=== PATIENT | male | born 1995 | race Hispanic/Latino ===

== ENCOUNTER 2021-03-23 18:20 | Emergency (ER) | payer SELFPAY ==
--- NOTE | 2021-03-23 19:05 | EDPHYS ---
Physician Documentation [facility] Name: Stevie Cantu Age: 26 yrs Sex: Male : 1995 Arrival Date: 03/23/2021 Time: 18:22 Bed 23 Private MD: ED Physician Mulugeta Arnold HPI: 03/23 19:00 This 26 yrs old Male presents to ER via Ambulatory with complaints of Eye joanna Swelling, Rash. 19:00 caused by poison gm. joanna Historical: - Allergies: 18:31 No Known Allergies; ll1 - PMHx: 18:31 None; ll1 - PSHx: 18:31 None; ll1 - Immunization history:: Flu vaccine is not up to date. - Social history:: Smoking status: Patient denies any tobacco usage or history of. ROS: 19:01 Constitutional: Negative for fever, chills, and weight loss, ENT: Negative for injury, joanna pain, and discharge, Neck: Negative for injury, pain, and swelling, Cardiovascular: Negative for chest pain, palpitations, and edema, Respiratory: Negative for shortness of breath, cough, wheezing, and pleuritic chest pain, Abdomen/GI: Negative for abdominal pain, nausea, vomiting, diarrhea, and constipation, Back: Negative for injury and pain, : Negative for injury, bleeding, discharge, and swelling, MS/Extremity: Negative for injury and deformity, Neuro: Negative for headache, weakness, numbness, tingling, and seizure, Psych: Negative for depression, anxiety, suicide ideation, homicidal ideation, and hallucinations, Allergy/Immunology: Negative for hives, rash, and allergies, Endocrine: Negative for neck swelling, polydipsia, polyuria, polyphagia, and marked weight changes, Hematologic/Lymphatic: Negative for swollen nodes, abnormal bleeding, and unusual bruising. 19:01 Eyes: Positive for itching, of the left upper eyelid, left outer canthus and left eye. 19:01 Skin: Positive for rash, of the forehead, left ear, left cheek, left eye and left restorationism. Exam: 19:01 Constitutional: This is a well developed, well nourished patient who is awake, alert, joanna and in no acute distress. ENT: Nares patent. No nasal discharge, no septal abnormalities noted. Tympanic membranes are normal and external auditory canals are clear. Oropharynx with no redness, swelling, or masses, exudates, or evidence of obstruction, uvula midline. Mucous membranes moist. Neck: Trachea midline, no thyromegaly or masses palpated, and no cervical lymphadenopathy. Supple, full range of motion without nuchal rigidity, or vertebral point tenderness. No Meningismus. Chest/axilla: Normal chest wall appearance and motion. Nontender with no deformity. No lesions are appreciated. Cardiovascular: Regular rate and rhythm with a normal S1 and S2. No gallops, murmurs, or rubs. Normal PMI, no JVD. No pulse deficits. Respiratory: Lungs have equal breath sounds bilaterally, clear to auscultation and percussion. No rales, rhonchi or wheezes noted. No increased work of breathing, no retractions or nasal flaring. Abdomen/GI: Soft, non-tender, with normal bowel sounds. No distension or tympany. No guarding or rebound. No evidence of tenderness throughout. Back: No spinal tenderness. No costovertebral tenderness. Full range of motion. Skin: Warm, dry with normal turgor. Normal color with no rashes, no lesions, and no evidence of cellulitis. MS/ Extremity: Pulses equal, no cyanosis. Neurovascular intact. Full, normal range of motion. Neuro: Awake and alert, GCS 15, oriented to person, place, time, and situation. Cranial nerves II-XII grossly intact. Motor strength 5/5 in all extremities. Sensory grossly intact. Cerebellar exam normal. Normal gait. Psych: Awake, alert, with orientation to person, place and time. Behavior, mood, and affect are within normal limits. 19:01 Head/face: Noted is erythema, that is mild, rash, swelling, that is mild, of the forehead, left ear, left cheek, left eye and left restorationism. 19:01 Eyes: Periorbital structures: appear normal, no acute changes, Pupils: no acute changes, equal, round, and reactive to light and accomodation, Extraocular movements: intact throughout, Conjunctiva: normal, no acute changes, Corneas: are normal, no acute changes. Vital Signs: 18:31 BP 153 / 95; Pulse 110; Resp 17; Temp 98.0; Pulse Ox 98% ; Weight 92.99 kg; Height 5 ll1 ft. 10 in. (177.80 cm); Pain 0/10; 18:31 Body Mass Index 29.41 (92.99 kg, 177.80 cm) ll1 MDM: 18:34 Patient medically screened. [facility] 19:03 Differential diagnosis: angioedema, urticaria. Data reviewed: vital signs, nurses joanna notes. Data interpreted: youth nutritional monitor: not applicable for this patient encounter. rate is 110 beats/min, rhythm is regular, Pulse oximetry: on room air is 98 %. Counseling: I had a detailed discussion with the patient and/or guardian regarding: the historical points, exam findings, and any diagnostic results supporting the discharge/admit diagnosis, the need for outpatient follow up, for definitive care, a family practitioner. Administered Medications: 19:26 Drug: predniSONE 60 mg Route: PO; zb 19:27 Follow up: Response: Medication administered at discharge. zb 19:26 Drug: Pepcid (famotidine) 40 mg Route: PO; zb 19:27 Follow up: Response: Medication administered at discharge. zb 19:26 Drug: Benadryl (diphenhydrAMINE) 50 mg Route: PO; zb 19:27 Follow up: Response: Medication administered at discharge. zb 19:26 Drug: Bactroban (mupirocin) Ointment 2 % 1 application Route: Topical; Site: affected zb area; 19:26 Follow up: Response: Medication administered at discharge. zb 19:26 Drug: Bactrim (trimethoprim-sulfamethoxazole) (160 mg-800 mg (DS) 1 tablet Route: PO; zb 19:26 Follow up: Response: Medication administered at discharge. zb Disposition: 03/23/21 19:05 Discharged to Home. Impression: Allergic contact dermatitis - poison gm, Impetigo. - Condition is Stable. - Discharge Instructions: Contact Dermatitis, Contact Dermatitis, [id number], Impetigo, Adult. - Prescriptions for Hydroxyzine HCl 50 mg Oral Tablet - take 1 tablet by ORAL route every 8 hours As needed; 20 tablet. Pepcid 20 mg Oral Tablet - take 1 tablet by ORAL route every 12 hours for 10 days; 20 tablet. Bactrim DS 800- 160 mg Oral Tablet - take 1 tablet by ORAL route every 12 hours for 10 days; 20 tablet. Prednisone 20 mg Oral Tablet - take 2 tablet by ORAL route once daily for 5 days; 10 tablet. - Medication Reconciliation Form, Thank You Letter, Antibiotic Education, Prescription Opioid Use form. - Follow up: Private Physician; When: 2 - 3 days; Reason: Recheck today's complaints, Continuance of care, Re-evaluation by your physician. - Problem is new. - Symptoms have improved. Signatures: Mulugeta Arnold MD MD cha Lewis, Lynsay, RN RN ll1 Sissy Guo RN RN zb Corrections: (The following items were deleted from the chart) 19:27 19:05 03/23/2021 19:05 Discharged to Home. Impression: Allergic contact dermatitis - zb poison gm; Impetigo. Condition is Stable. Forms are Medication Reconciliation Form, Thank You Letter, Antibiotic Education, Prescription Opioid Use. Follow up: Private Physician; When: 2 - 3 days; Reason: Recheck today's complaints, Continuance of care, Re-evaluation by your physician. Problem is new. Symptoms have improved. joanna
--- NOTE | 2021-03-23 19:05 | ER ---
Nurse's Notes [facility] Name: Stevie Cantu Age: 26 yrs Sex: Male : 1995 Arrival Date: 03/23/2021 Time: 18:22 Bed 23 Private MD: Diagnosis: Allergic contact dermatitis-poison gm;Impetigo Presentation: 03/23 18:31 Chief complaint: Patient states: Rash with itching to L side of face for 2 days. Awoke ll1 today and L eye is swollen. States its starting to spread to his other eye now. No fever. Coronavirus screen: Client denies travel out of the [place] in the last 14 days. At this time, the client does not indicate any symptoms associated with coronavirus-19. Ebola Screen: Patient denies travel to an Ebola-affected area in the 21 days before illness onset. Initial Sepsis Screen: Does the patient meet any 2 criteria? HR > 90 bpm. No. Patient's initial sepsis screen is negative. Does the patient have a suspected source of infection? Yes: Skin breakdown/wound. Risk Assessment: Do you want to hurt yourself or someone else? Patient reports no desire to harm self or others. Onset of symptoms was March 22, 2021. 18:31 Method Of Arrival: Ambulatory ll1 18:31 Acuity: JORDYN 3 ll1 Historical: - Allergies: 18:31 No Known Allergies; ll1 - PMHx: 18:31 None; ll1 - PSHx: 18:31 None; ll1 - Immunization history:: Flu vaccine is not up to date. - Social history:: Smoking status: Patient denies any tobacco usage or history of. Screenin:46 Abuse screen: Denies threats or abuse. Denies injuries from another. Nutritional zb screening: No deficits noted. Tuberculosis screening: No symptoms or risk factors identified. Fall Risk None identified. Assessment: 18:46 General: Appears in no apparent distress. uncomfortable, Behavior is calm, cooperative. zb Pain: Denies pain. Neuro: Level of Consciousness is awake, alert, obeys commands, Oriented to person, place, time. Cardiovascular: No deficits noted. Respiratory: No deficits noted. GI: No deficits noted. : No deficits noted. EENT: Eyes left eye swelling. . Derm: Rash noted that is itchy, papular, red, raised, on face Reports increased itching, since 2-3 days ago . Musculoskeletal: Range of motion: intact in all extremities. Musculoskeletal: Swelling present in left cheek and left eye. Vital Signs: 18:31 BP 153 / 95; Pulse 110; Resp 17; Temp 98.0; Pulse Ox 98% ; Weight 92.99 kg; Height 5 ll1 ft. 10 in. (177.80 cm); Pain 0/10; 18:31 Body Mass Index 29.41 (92.99 kg, 177.80 cm) ll1 ED Course: 18:22 Patient arrived in ED. as 18:31 Arm band placed on. ll1 18:32 Triage completed. ll1 18:34 Mulugeta Arnold MD is Attending Physician. [facility] 18:40 Sissy Guo, MARION is Primary Nurse. zb 18:42 Patient has correct armband on for positive identification. Bed in low position. Call zb light in reach. Side rails up X 1. Pulse ox on. NIBP on. 19:27 No provider procedures requiring assistance completed. Patient did not have IV access zb during this emergency room visit. Administered Medications: 19:26 Drug: predniSONE 60 mg Route: PO; zb 19:27 Follow up: Response: Medication administered at discharge. zb 19:26 Drug: Pepcid (famotidine) 40 mg Route: PO; zb 19:27 Follow up: Response: Medication administered at discharge. zb 19:26 Drug: Benadryl (diphenhydrAMINE) 50 mg Route: PO; zb 19:27 Follow up: Response: Medication administered at discharge. zb 19:26 Drug: Bactroban (mupirocin) Ointment 2 % 1 application Route: Topical; Site: affected zb area; 19:26 Follow up: Response: Medication administered at discharge. zb 19:26 Drug: Bactrim (trimethoprim-sulfamethoxazole) (160 mg-800 mg (DS) 1 tablet Route: PO; zb 19:26 Follow up: Response: Medication administered at discharge. zb Outcome: 19:05 Discharge ordered by . joanna 19:27 Discharged to home ambulatory. zb 19:27 Condition: stable 19:27 Discharge instructions given to patient, family, Instructed on discharge instructions, follow up and referral plans. medication usage, Demonstrated understanding of instructions, follow-up care, medications, Prescriptions given X 4. 19:27 Patient left the ED. zb Signatures: Mulugeta Arnold MD MD cha Martinez, Amelia as Lewis, Lynsay, RN RN ll1 Sissy Guo RN RN zb
[2021-03-23] MEDS ORDERED: predniSONE 20 MG TAB ONE (19:37)
[2021-03-23] MEDS ORDERED: DIPHENHYDRAMINE 25 MG TAB/CAP ONE (19:37)
[2021-03-23] MEDS ORDERED: FAMOTIDINE 20 MG TAB ONE (19:38)
[2021-03-23] MEDS ORDERED: MUPIROCIN 2% OINT 22GM TUBE TOP ONE (19:38)
[2021-03-23 19:40] VITALS: BP 153/95; TEMP 98; O2SAT 98
[2021-03-23] MEDS ORDERED: SMZ./TMP. 800/160 MG TABLET ONE (19:46)
== END 2021-03-23 19:27 | disposition home or self-care (01) ==
LOC: ER 18:20
DX: L23.7 Allergic contact dermatitis due to plants, except food (principal); L01.00 Impetigo, unspecified
CPT/HCPCS: 99283; J7512